=== PATIENT | female | born 1955 | race Caucasian/White ===

== ENCOUNTER → 2016-06-27 | Outpatient (CLI) | payer BC ==
[~2016-06-27] VITALS: Ht 156.2 cm; Wt 58.2 kg
[~2016-06-27] MED LIST: ADULT LOW DOSE81 M1 PO; ATIVAN2 MG PO; Ativan PO; BACTRIM,SEPT1 TABLET PO; BESIVANCE5 ML LEFT EYE; BUSPAR30 MG PO; Buspar PO; CARAFATE1 GM PO; COREG12.5 M1 PO; COREG3.125 M1 PO; COREG6.25 M1 PO; CORLANOR7.5 MG PO; COZAAR25 MG PO; Coreg PO; EFFEXOR XR150 MG PO; FERROUS SULFAT325 MG PO; FLEXERIL5 MG PO; GLUCOPHAGE850 MG PO; Glucophage PO; HUMULIN N100 UNIT/1 SQ; HUMULIN N300 UNIT/3 SC; HUMULIN NP100 UNIT/1 SC; HUMULIN R100 UNITS/ SC; HYDROCODON-ACE1 EAC7 PO; Habitrol,Nicoderm CQ TD; Humulin R SC; KEFLEX500 MG PO; KLOR-CON M1010 MEQ PO; LASIX20 MG PO; LEVEMIR100 UNIT/2 SC; LEVETIRACETAM500 MG PO; LEVOTHROID,S0.125 MG PO; LIPITOR40 MG PO; LOSARTAN POTASS50 MG PO; LOTEMAX5 GM LEFT EYE; Levaquin PO; Levothroid,Synthroid PO; Lipitor PO; METFORMIN HCL850 MG PO; NORCO 5/3251 TABLET PO; NOVOLOG PE100 UNITS/ SC; OMEPRAZOLE40 M1 PO; PROLENSA1.6 ML LEFT EYE; RISPERDAL0.25 M1 PO; RISPERDAL2 MG PO; SINEQUAN25 MG PO; SINEQUAN75 MG PO; SPIRIVA1 INHALATI IH; SYNTHROID125 MCG PO; SYNTHROID175 MCG PO; TRAZODONE HCL100 MG PO; ULTRAM50 MG PO; VICTOZA 2-0.6 MG/0.1 SC
[2016-06-27 09:24] LABS: POINT-OF-CARE METER ID UU13113694
[2016-06-27 09:36] LABS: ANION GAP 9 MEQ/L (2-14); CHLORIDE 100 MEQ/L (99-109); POTASSIUM 3.6 MEQ/L (3.7-5.4); SAMPLE HEMOLYSIS CHECK 0; SAMPLE ICTERIC CHECK 0; SAMPLE LIPEMIA CHECK 0; SODIUM 139 MEQ/L (136-147)
[2016-06-27 09:42] LABS: GFR ESTIMATE (CALCULATED) > 59 mL/min/; GLUCOSE 135 mg/dL (70-99); UREA NITROGEN (BUN) 5 mg/dL (9-23)
[2016-06-27 10:20] LABS: POINT-OF-CARE METER ID UU13113819
== END | disposition home or self-care (01) ==
LOC: AMB 08:30
PROVIDERS: Anesthesiology; Internal Medicine Gastroenterology
PROC: 0DJD8ZZ Inspection of Lower Intestinal Tract, Via Natural or Artificial Opening Endoscopic (ICD-10-PCS; principal; 2016-06-27)
DX: R93.3 Abnormal findings on diagnostic imaging of other parts of digestive tract (principal); K56.60 Unspecified intestinal obstruction; Z53.8 Procedure and treatment not carried out for other reasons; F17.200 Nicotine dependence, unspecified, uncomplicated; J44.9 Chronic obstructive pulmonary disease, unspecified; K21.9 Gastro-esophageal reflux disease without esophagitis; I42.0 Dilated cardiomyopathy; I10 Essential (primary) hypertension; I45.4 Nonspecific intraventricular block; E11.9 Type 2 diabetes mellitus without complications; E78.5 Hyperlipidemia, unspecified; Z85.850 Personal history of malignant neoplasm of thyroid
CPT/HCPCS: 80048; 82948; J2250; J3010

== ENCOUNTER → 2016-06-28 | Outpatient (CLI) | payer BC ==
[~2016-06-28] VITALS: Ht 156.2 cm; Wt 58.2 kg
[2016-06-28 14:38] LABS: POINT-OF-CARE METER ID UU13113694
== END | disposition home or self-care (01) ==
LOC: AMB 08:30
PROVIDERS: Internal Medicine Gastroenterology
PROC: 0DJD8ZZ Inspection of Lower Intestinal Tract, Via Natural or Artificial Opening Endoscopic (ICD-10-PCS; principal; 2016-06-28)
DX: R93.3 Abnormal findings on diagnostic imaging of other parts of digestive tract (principal); F33.1 Major depressive disorder, recurrent, moderate; F41.1 Generalized anxiety disorder; F51.04 Psychophysiologic insomnia
CPT/HCPCS: 82948; B4087; J2250

== ENCOUNTER 2016-09-25 08:07 | Inpatient (IN) | payer BC ==
[~2016-09-25] VITALS: Ht 158.8 cm; Wt 63.2 kg
[~2016-09-25 08:07] MED LIST changes: +ALLERGY RELIEF25 MG PO; +KEPPRA500 MG PO; +STAY AWAKE200 MG PO
[2016-09-25 08:50] LABS: POINT-OF-CARE METER ID UU14174212
[2016-09-25 09:05] VITALS: BP 121/69
[2016-09-25 13:28] LABS: POINT-OF-CARE METER ID UU13113675; POINT-OF-CARE USER ID AHSRSCGAB
[2016-09-25 19:38] VITALS: BP 135/62
[2016-09-25 23:39] VITALS: BP 139/63
[2016-09-26 03:41] VITALS: BP 118/59
[2016-09-26 05:04] LABS: HEMATOCRIT 30.1 % (36.0-46.0); MCV 96.5 FL (83-99)
[2016-09-26 05:13] LABS: CHLORIDE 107 mEq/L (99-109); POTASSIUM 4.4 mEq/L (3.7-5.4); SODIUM 140 mEq/L (136-147)
[2016-09-26 05:15] LABS: GLUCOSE 198 mg/dL (70-99)
[2016-09-26 05:16] LABS: ANION GAP 7 MEQ/L (2-14)
[2016-09-26 05:19] LABS: GFR ESTIMATE (CALCULATED) > 59 mL/min/; UREA NITROGEN (BUN) 14 mg/dL (9-23)
[2016-09-26 08:30] VITALS: BP 130/90
== END 2016-09-26 12:09 | disposition home or self-care (01) | DRG 483 ==
LOC: 2SOUTH 08:07 → 3EAST 17:42
PROVIDERS: Orthopaedic Surgery
DX: S42.291K Other displaced fracture of upper end of right humerus, subsequent encounter for fracture with nonunion (principal); M87.221 Osteonecrosis due to previous trauma, right humerus; S46.011S Strain of muscle(s) and tendon(s) of the rotator cuff of right shoulder, sequela; M24.511 Contracture, right shoulder; J44.9 Chronic obstructive pulmonary disease, unspecified; I10 Essential (primary) hypertension; E11.9 Type 2 diabetes mellitus without complications; E78.00 Pure hypercholesterolemia, unspecified; F17.210 Nicotine dependence, cigarettes, uncomplicated; I25.2 Old myocardial infarction; Z95.0 Presence of cardiac pacemaker
CPT/HCPCS: 80048; 82948; 85014; 85018; 94799; C1713; J0330; J0690; J1100; J1815; J2250; J2405; J2795; J3010; J7030; J7050

== ENCOUNTER 2017-05-03 20:27 | Inpatient (IN) | payer BC ==
[~2017-05-03] VITALS: Ht 160 cm; Wt 58.8 kg
[2017-05-03 21:08] LABS: HEMATOCRIT 40.3 % (36.0-46.0); MCH 31.5 PG (29.0-34.0); MCV 85.2 FL (83-99); MEAN PLAT.VOLUME 9.6 uM^3 (9.5-12.4); NRBC (%) 0.1 /100 WBC (0-0); PLATELET COUNT 417 K/uL (156-360); RBC DIS.WIDTH-CV 14.4 % (11.8-14.6); RBC DIS.WIDTH-SD 43.8 % (39-53); RED BLOOD COUNT 4.73 M/uL (3.80-5.20); WHITE BLOOD COUNT 21.8 K/uL (4.1-10.2)
[2017-05-03 21:20] LABS: CHLORIDE 97 mEq/L (99-109); POTASSIUM 3.8 mEq/L (3.7-5.4); SODIUM 131 mEq/L (136-147)
[2017-05-03 21:22] LABS: GLUCOSE 150 mg/dL (70-99)
[2017-05-03 21:23] LABS: ANION GAP 12 MEQ/L (2-14)
[2017-05-03 21:26] LABS: GFR ESTIMATE (CALCULATED) > 59 mL/min/
[2017-05-03 21:27] LABS: UREA NITROGEN (BUN) 10 mg/dL (9-23)
[2017-05-03 21:53] LABS: TOTAL BILIRUBIN 0.5 mg/dL (0.0-1.0)
[2017-05-03 21:54] LABS: ALKALINE PHOSPHATASE 223 IU/L (3-129)
[2017-05-03 21:56] LABS: DIRECT BILIRUBIN 0.3 mg/dL (0.0-0.3)
[2017-05-03 21:57] LABS: LIPASE 13 U/L (1.0-51.0)
[2017-05-03 21:59] LABS: BASOPHIL COUNT 0.2 K/uL (0-0.1); EOSINOPHIL (%) 3.1 % (0-5); EOSINOPHIL COUNT 0.7 K/uL (0-0.3); IMMATURE GRANULOCYTE (%) 2.7 % (0.0-0.7); IMMATURE GRANULOCYTE COUNT 0.6 K/uL; INSTRUMENT ABS NEUTROPHIL CT 14.5 K/uL; LYMPHOCYTE COUNT 4.2 K/uL (1.0-2.8); MONOCYTE (%) 6.8 % (3-12); MONOCYTE COUNT 1.5 K/uL (0-0.8); NEUTROPHIL (%) 67.3 % (45-76); NEUTROPHIL COUNT 14.5 K/uL (1.8-6.4)
[2017-05-04 01:27] LABS: ADD MIUA? YES; BILIRUBIN NEGATIVE; BLOOD NEGATIVE; COLOR YELLOW ((YELLOW)); GLUCOSE (STRIP) NEGATIVE; KETONES NEGATIVE; LEUKOCYTES SMALL; NITRITE POSITIVE; PROTEIN (STRIP) NEGATIVE; UROBILINOGEN 0.2 MG/DL (0.2-1.0)
[2017-05-04 02:11] LABS: BACTERIA NONE SEEN /HPF; EPITHELIAL CELLS RARE /HPF; HYALINE CASTS 0-5 /LPF; MUCUS 2+ /LPF; RED BLOOD CELLS 0-5 /HPF (0-5); WHITE BLOOD CELLS 30-40 /HPF (0-5)
[2017-05-04] MEDS ORDERED: TRAZODONE HCL50 MG PO (03:00)
[2017-05-04] MEDS ORDERED: LEVOTHYROXINE112 MCG PO (03:01)
[2017-05-04 03:36] LABS: SPECIFIC GRAVITY 1.052 (1.000-1.030)
[2017-05-04 05:05] VITALS: BP 174/81
[2017-05-04 05:57] LABS: HEMATOCRIT 41.4 % (36.0-46.0); MCH 31.5 PG (29.0-34.0); MCHC 36.7 G/DL (30.0-36.0); MCV 85.7 FL (83-99); MEAN PLAT.VOLUME 9.3 uM^3 (9.5-12.4); PLATELET COUNT 412 K/uL (156-360); RBC DIS.WIDTH-CV 14.6 % (11.8-14.6); RBC DIS.WIDTH-SD 45.1 % (39-53); RED BLOOD COUNT 4.83 M/uL (3.80-5.20); WHITE BLOOD COUNT 20.9 K/uL (4.1-10.2)
[2017-05-04 06:14] LABS: INTER. NORMALIZED RATIO 1.6; PROTHROMBIN TIME 17.8 SEC (10.2-12.9)
[2017-05-04 06:37] LABS: ANION GAP 12 MEQ/L (2-14); CHLORIDE 101 MEQ/L (99-109); POTASSIUM 3.1 MEQ/L (3.7-5.4); SAMPLE HEMOLYSIS CHECK 0; SAMPLE ICTERIC CHECK 0; SAMPLE LIPEMIA CHECK 0; SODIUM 134 MEQ/L (136-147)
[2017-05-04 06:48] LABS: GFR ESTIMATE (CALCULATED) > 59 mL/min/; GLUCOSE 143 mg/dL (70-99); UREA NITROGEN (BUN) 7 mg/dL (9-23)
[2017-05-04 06:55] LABS: POINT-OF-CARE METER ID UU14208753
[2017-05-04 06:58] VITALS: BP 176/80
[2017-05-04 07:15] LABS: C DIFF TOXIN NEGATIVE (NEGATIVE); PROBE CHECK PASS; SPECIMEN PROCESSING CONTROL PASS
[2017-05-04 08:00] VITALS: BP 116/68
[2017-05-04 11:33] LABS: POINT-OF-CARE METER ID UU14149397
[2017-05-04 15:20] VITALS: BP 159/76
[2017-05-04 16:40] LABS: POINT-OF-CARE METER ID UU14149397
[2017-05-04 18:06] LABS: ANION GAP 12 MEQ/L (2-14); CHLORIDE 100 MEQ/L (99-109); GFR ESTIMATE (CALCULATED) > 59 mL/min/; GLUCOSE 167 mg/dL (70-99); POTASSIUM 2.6 MEQ/L (3.7-5.4); SAMPLE HEMOLYSIS CHECK 0; SAMPLE ICTERIC CHECK 0; SAMPLE LIPEMIA CHECK 0; SODIUM 134 MEQ/L (136-147); UREA NITROGEN (BUN) 5 mg/dL (9-23)
[2017-05-04 19:43] VITALS: BP 132/63
[2017-05-04 19:59] LABS: MAGNESIUM 0.5 mg/dl (1.3-2.7)
[2017-05-04] MEDS ORDERED: NICOTINE PATCH1 EAC1 TD (21:30)
[2017-05-04 21:51] LABS: POINT-OF-CARE METER ID UU14117124
[2017-05-04 23:22] VITALS: BP 106/57
[2017-05-05 03:31] VITALS: BP 118/56
[2017-05-05 07:09] LABS: HEMATOCRIT 31.5 % (36.0-46.0); MCH 31.3 PG (29.0-34.0); MCHC 37.5 G/DL (30.0-36.0); MCV 83.6 FL (83-99); MEAN PLAT.VOLUME 9.4 uM^3 (9.5-12.4); NRBC (%) 0.1 /100 WBC (0-0); PLATELET COUNT 355 K/uL (156-360); RBC DIS.WIDTH-CV 14.2 % (11.8-14.6); RBC DIS.WIDTH-SD 41.8 % (39-53); RED BLOOD COUNT 3.77 M/uL (3.80-5.20); WHITE BLOOD COUNT 16.6 K/uL (4.1-10.2)
[2017-05-05 07:37] LABS: ANION GAP 9 MEQ/L (2-14); CHLORIDE 101 MEQ/L (99-109); GFR ESTIMATE (CALCULATED) > 59 mL/min/; GLUCOSE 136 mg/dL (70-99); SAMPLE HEMOLYSIS CHECK 0; SAMPLE ICTERIC CHECK 0; SAMPLE LIPEMIA CHECK 0; SODIUM 135 MEQ/L (136-147); UREA NITROGEN (BUN) 2 mg/dL (9-23)
[2017-05-05 07:38] LABS: POTASSIUM 3.8 MEQ/L (3.7-5.4)
[2017-05-05 07:42] LABS: POINT-OF-CARE METER ID UU14149397
[2017-05-05 08:11] VITALS: BP 141/62
[2017-05-05 09:52] LABS: ALKALINE PHOSPHATASE 150 IU/L (3-129); DIRECT BILIRUBIN 0.2 mg/dL (0.0-0.3); GAMMA-GT 150 IU/L (4-73); TOTAL BILIRUBIN 0.6 MG/DL (0.0-1.0)
[2017-05-05 11:43] LABS: POINT-OF-CARE METER ID UU14117124
[2017-05-05 11:48] VITALS: BP 145/67
[2017-05-05 15:51] VITALS: BP 130/62
[2017-05-05 17:26] LABS: POINT-OF-CARE METER ID UU14117124
[2017-05-05 19:48] VITALS: BP 148/71
[2017-05-05 21:16] LABS: POINT-OF-CARE METER ID UU14117124
[2017-05-05 23:39] VITALS: BP 153/72
[2017-05-06 04:56] VITALS: BP 148/71
[2017-05-06 06:31] LABS: POINT-OF-CARE METER ID UU14208753
[2017-05-06 06:51] LABS: MCV 83.8 FL (83-99); RED BLOOD COUNT 3.82 M/uL (3.80-5.20); WHITE BLOOD COUNT 13.9 K/uL (4.1-10.2)
[2017-05-06 06:52] LABS: BASOPHIL COUNT 0.1 K/uL (0-0.1); EOSINOPHIL (%) 5.2 % (0-5); EOSINOPHIL COUNT 0.7 K/uL (0-0.3); IMMATURE GRANULOCYTE (%) 1.7 % (0.0-0.7); IMMATURE GRANULOCYTE COUNT 0.2 K/uL; INSTRUMENT ABS NEUTROPHIL CT 8.4 K/uL; LYMPHOCYTE COUNT 3.2 K/uL (1.0-2.8); MCH 31.4 PG (29.0-34.0); MCHC 37.5 G/DL (30.0-36.0); MEAN PLAT.VOLUME 9.4 uM^3 (9.5-12.4); MONOCYTE (%) 9.5 % (3-12); MONOCYTE COUNT 1.3 K/uL (0-0.8); NEUTROPHIL (%) 59.9 % (45-76); NEUTROPHIL COUNT 8.4 K/uL (1.8-6.4); PLATELET COUNT 375 K/uL (156-360); RBC DIS.WIDTH-CV 14.3 % (11.8-14.6); RBC DIS.WIDTH-SD 41.5 % (39-53)
[2017-05-06 07:25] LABS: ANION GAP 11 MEQ/L (2-14); CHLORIDE 100 MEQ/L (99-109); GFR ESTIMATE (CALCULATED) > 59 mL/min/; GLUCOSE 105 mg/dL (70-99); MAGNESIUM 1.2 mg/dl (1.3-2.7); SAMPLE HEMOLYSIS CHECK 0; SAMPLE ICTERIC CHECK 0; SAMPLE LIPEMIA CHECK 0; SODIUM 138 MEQ/L (136-147); UREA NITROGEN (BUN) 2 mg/dL (9-23)
[2017-05-06 08:08] VITALS: BP 154/77
[2017-05-06 10:44] LABS: POC NON-PRINT COM 1 ND
[2017-05-06 11:44] LABS: POINT-OF-CARE METER ID UU14188577
[2017-05-06 12:05] VITALS: BP 149/72
[2017-05-06 15:40] LABS: POINT-OF-CARE METER ID UU14188577
[2017-05-06 16:02] VITALS: BP 135/69
[2017-05-06 20:27] VITALS: BP 140/66
[2017-05-06 21:51] LABS: POINT-OF-CARE METER ID UU14208753
[2017-05-06 23:56] VITALS: BP 161/72
[2017-05-07 04:26] VITALS: BP 157/74
[2017-05-07 06:26] LABS: POINT-OF-CARE METER ID UU14117124
[2017-05-07 06:38] LABS: BASOPHIL COUNT 0.1 K/uL (0-0.1); EOSINOPHIL (%) 5.2 % (0-5); EOSINOPHIL COUNT 0.5 K/uL (0-0.3); HEMATOCRIT 29.4 % (36.0-46.0); IMMATURE GRANULOCYTE (%) 1.7 % (0.0-0.7); IMMATURE GRANULOCYTE COUNT 0.2 K/uL; INSTRUMENT ABS NEUTROPHIL CT 4.8 K/uL; LYMPHOCYTE COUNT 2.7 K/uL (1.0-2.8); MCH 32.1 PG (29.0-34.0); MCHC 37.4 G/DL (30.0-36.0); MCV 85.7 FL (83-99); MEAN PLAT.VOLUME 9.5 uM^3 (9.5-12.4); MONOCYTE (%) 12.9 % (3-12); MONOCYTE COUNT 1.2 K/uL (0-0.8); NEUTROPHIL (%) 50.8 % (45-76); NEUTROPHIL COUNT 4.8 K/uL (1.8-6.4); PLATELET COUNT 344 K/uL (156-360); RBC DIS.WIDTH-CV 14.4 % (11.8-14.6); RED BLOOD COUNT 3.43 M/uL (3.80-5.20); WHITE BLOOD COUNT 9.4 K/uL (4.1-10.2)
[2017-05-07 07:01] LABS: CHLORIDE 98 MEQ/L (99-109); GFR ESTIMATE (CALCULATED) > 59 mL/min/; GLUCOSE 152 mg/dL (70-99); POTASSIUM 3.2 MEQ/L (3.7-5.4); SODIUM 137 MEQ/L (136-147); UREA NITROGEN (BUN) 4 mg/dL (9-23)
[2017-05-07 07:02] LABS: ANION GAP 8 MEQ/L (2-14); MAGNESIUM 1.1 mg/dl (1.3-2.7); SAMPLE HEMOLYSIS CHECK 0; SAMPLE ICTERIC CHECK 0; SAMPLE LIPEMIA CHECK 0
[2017-05-07 08:14] VITALS: BP 116/74
[2017-05-07 12:09] LABS: POINT-OF-CARE METER ID UU14117124
[2017-05-07 15:38] VITALS: BP 113/55
[2017-05-07 17:05] LABS: POINT-OF-CARE METER ID UU14117124
[2017-05-07 21:39] LABS: POINT-OF-CARE METER ID UU14188577
[2017-05-07 23:54] VITALS: BP 158/75
[2017-05-08 06:53] LABS: POINT-OF-CARE METER ID UU14208753
[2017-05-08 07:11] LABS: BASOPHIL COUNT 0.1 K/uL (0-0.1); EOSINOPHIL (%) 4.9 % (0-5); EOSINOPHIL COUNT 0.4 K/uL (0-0.3); HEMATOCRIT 31.4 % (36.0-46.0); IMMATURE GRANULOCYTE (%) 1.4 % (0.0-0.7); IMMATURE GRANULOCYTE COUNT 0.1 K/uL; INSTRUMENT ABS NEUTROPHIL CT 5.3 K/uL; MCH 31.4 PG (29.0-34.0); MCHC 35.7 G/DL (30.0-36.0); MEAN PLAT.VOLUME 9.5 uM^3 (9.5-12.4); MONOCYTE COUNT 1.2 K/uL (0-0.8); NEUTROPHIL (%) 58.3 % (45-76); NEUTROPHIL COUNT 5.3 K/uL (1.8-6.4); PLATELET COUNT 384 K/uL (156-360); RBC DIS.WIDTH-CV 14.8 % (11.8-14.6); RBC DIS.WIDTH-SD 45.1 % (39-53); RED BLOOD COUNT 3.57 M/uL (3.80-5.20)
[2017-05-08 07:39] LABS: ANION GAP 9 MEQ/L (2-14); CHLORIDE 96 MEQ/L (99-109); GFR ESTIMATE (CALCULATED) > 59 mL/min/; GLUCOSE 166 mg/dL (70-99); POTASSIUM 3.8 MEQ/L (3.7-5.4); SAMPLE HEMOLYSIS CHECK 0; SAMPLE ICTERIC CHECK 0; SAMPLE LIPEMIA CHECK 0; SODIUM 136 MEQ/L (136-147); UREA NITROGEN (BUN) 7 mg/dL (9-23)
[2017-05-08 07:40] LABS: MAGNESIUM 1.4 mg/dl (1.3-2.7)
[2017-05-08 08:05] VITALS: BP 181/84
[2017-05-08] MEDS ORDERED: CIPRO500 MG PO (08:51)
== END 2017-05-08 12:03 | disposition home or self-care (01) | DRG 378 ==
LOC: EME 20:27 → EDOF 05-04 03:41 → 3EAST 05-04 03:41 → ENRESERV 05-04 03:45 → 3EAST 05-04 04:23
PROVIDERS: Hospitalist; Internal Medicine; Internal Medicine Gastroenterology; Physician Assistant; Student in an Organized Health Care Education/Training Program
PROC: 0DB68ZX Excision of Stomach, Via Natural or Artificial Opening Endoscopic, Diagnostic (ICD-10-PCS; principal; 2017-05-04)
DX: K92.1 Melena (principal); N30.00 Acute cystitis without hematuria; I42.0 Dilated cardiomyopathy; E87.1 Hypo-osmolality and hyponatremia; K29.60 Other gastritis without bleeding; Z66 Do not resuscitate; K25.4 Chronic or unspecified gastric ulcer with hemorrhage; E87.8 Other disorders of electrolyte and fluid balance, not elsewhere classified; E03.9 Hypothyroidism, unspecified; G40.909 Epilepsy, unspecified, not intractable, without status epilepticus; F17.210 Nicotine dependence, cigarettes, uncomplicated; F41.9 Anxiety disorder, unspecified; I10 Essential (primary) hypertension; E78.5 Hyperlipidemia, unspecified; E11.43 Type 2 diabetes mellitus with diabetic autonomic (poly)neuropathy; K31.84 Gastroparesis; I44.7 Left bundle-branch block, unspecified; J43.9 Emphysema, unspecified; K21.9 Gastro-esophageal reflux disease without esophagitis; I25.10 Atherosclerotic heart disease of native coronary artery without angina pectoris; E86.0 Dehydration; B96.20 Unspecified Escherichia coli [E. coli] as the cause of diseases classified elsewhere; Z79.82 Long term (current) use of aspirin; Z79.84 Long term (current) use of oral hypoglycemic drugs; Z95.810 Presence of automatic (implantable) cardiac defibrillator; Z87.442 Personal history of urinary calculi; Z87.11 Personal history of peptic ulcer disease; Z86.010 Personal history of colon polyps; Z85.850 Personal history of malignant neoplasm of thyroid
CPT/HCPCS: 74177; 80048; 80048 91; 80069; 80076; 81003; 82272; 82565; 82948; 82977; 83605; 83690; 83735; 83930; 84100; 84443; 84520; 85025; 85027; 85610; 86850; 86900; 86901; 87040; 87077; 87086; 87186; 87493; 87506; 88305; 88342 TC; 90686; 93005; 99281; 99285; C9113; J0610; J0696; J1815; J3475; J3480; J7030; J7040; J7050

== ENCOUNTER 2017-11-16 22:04 | Emergency (ER) | payer BC ==
[~2017-11-16] VITALS: Ht 160 cm; Wt 63.3 kg
[~2017-11-16 22:04] MED LIST changes: +CIPRO500 MG PO; +LEVOTHYROXINE112 MCG PO; +NICOTINE PATCH1 EAC1 TD; +TRAZODONE HCL50 MG PO
[2017-11-16 23:39] VITALS: BP 157/77
== END 2017-11-16 23:39 | disposition home or self-care (01) ==
LOC: EME 22:04
DX: J04.0 Acute laryngitis (principal); E11.9 Type 2 diabetes mellitus without complications; Z87.891 Personal history of nicotine dependence; Z95.810 Presence of automatic (implantable) cardiac defibrillator; Z85.850 Personal history of malignant neoplasm of thyroid; Z88.8 Allergy status to other drugs, medicaments and biological substances
CPT/HCPCS: 70360; 87651 90; 99281; 99283

== ENCOUNTER 2017-12-17 12:34 | Inpatient (IN) | payer BC ==
[2017-12-17] VITALS (16 sets, daily range): BP systolic 102–183; BP diastolic 57–150
[~2017-12-17] VITALS: Ht 160 cm; Wt 62.3 kg
[~2017-12-17 12:34] MED LIST changes: +LEVOTHYROXINE100 MCG PO; -LEVOTHYROXINE112 MCG PO
[2017-12-17 13:40] LABS: BASOPHIL (%) 0.6 % (0-1); BASOPHIL COUNT 0.1 K/uL (0-0.1); EOSINOPHIL (%) 0 % (0-5); HEMATOCRIT 46.9 % (36.0-46.0); HEMOGLOBIN 16.2 G/DL (11.9-15.5); IMMATURE GRANULOCYTE (%) 0.8 % (0.0-0.7); LYMPHOCYTE (%) 20.9 % (15-42); LYMPHOCYTE COUNT 2.6 K/uL (1.0-2.8); MCH 32.4 PG (29.0-34.0); MCHC 34.5 G/DL (30.0-36.0); MCV 93.8 FL (83-99); MONOCYTE COUNT 0.5 K/uL (0-0.8); NEUTROPHIL (%) 73.7 % (45-76); NEUTROPHIL COUNT 9.1 K/uL (1.8-6.4); PLATELET COUNT 561 K/uL (156-360); RBC DIS.WIDTH-CV 13.1 % (11.8-14.6); RBC DIS.WIDTH-SD 44.8 % (39-53); WHITE BLOOD COUNT 12.4 K/uL (4.1-10.2)
[2017-12-17 13:44] LABS: CARBON DIOXIDE (BICARBONATE) 15.2 MEQ/L (20-31)
[2017-12-17 14:42] LABS: ALBUMIN 4.9 G/DL (3.2-4.8); ALKALINE PHOSPHATASE 105 IU/L (3-129); ALT (GPT) 23 IU/L (3-49); AST (GOT) 16 IU/L (2-34); CHLORIDE 98 MEQ/L (99-109); CREATININE 0.9 MG/DL (0.6-1.3); DIRECT BILIRUBIN 0.1 mg/dL (0.0-0.3); GFR ESTIMATE (CALCULATED) > 59 mL/min/; POTASSIUM 4.4 MEQ/L (3.7-5.4); SODIUM 132 MEQ/L (136-147); THYROTROPIN (TSH) 24.9 MIU/L (0.4-5.5); TOTAL BILIRUBIN 0.4 MG/DL (0.0-1.0); TOTAL PROTEIN 8.1 G/DL (6.4-8.3); UREA NITROGEN (BUN) 10 mg/dL (9-23)
[2017-12-17 14:56] LABS: GLUCOSE 556 mg/dL (70-99)
[2017-12-17 15:38] LABS: LIPASE 25 U/L (1.0-51.0)
[2017-12-17] MEDS ORDERED: DILANTIN INFATA50 MG PO (16:03)
[2017-12-17 16:47] LABS: PHOSPHORUS 2.5 mg/dL (2.5-4.9)
[2017-12-17 17:26] LABS: APPEARANCE CLEAR ((CLEAR)); BILIRUBIN NEGATIVE; BLOOD SMALL; COLOR STRAW ((YELLOW)); GLUCOSE (STRIP) >=500; KETONES NEGATIVE; LEUKOCYTES NEGATIVE; NITRITE NEGATIVE; PROTEIN (STRIP) 30; SPECIFIC GRAVITY 1.041 (1.000-1.030); UROBILINOGEN 0.2 MG/DL (0.2-1.0)
[2017-12-17 17:34] LABS: HEMATOCRIT 43.4 % (36.0-46.0); HEMOGLOBIN 14.7 G/DL (11.9-15.5); MCH 31.7 PG (29.0-34.0); MCHC 33.9 G/DL (30.0-36.0); MCV 93.5 FL (83-99); PLATELET COUNT 546 K/uL (156-360); RBC DIS.WIDTH-CV 13.2 % (11.8-14.6); RBC DIS.WIDTH-SD 44.8 % (39-53); RED BLOOD COUNT 4.64 M/uL (3.80-5.20); WHITE BLOOD COUNT 15.5 K/uL (4.1-10.2)
[2017-12-17 18:04] LABS: EPITHELIAL CELLS RARE /HPF; RED BLOOD CELLS 0-5 /HPF (0-5); WHITE BLOOD CELLS 0-5 /HPF (0-5)
[2017-12-17 18:05] LABS: BACTERIA RARE /HPF; UCUL ADDED? NO
[2017-12-17 18:06] LABS: MUCUS TRACE /LPF
[2017-12-17 19:07] LABS: CHLORIDE 102 MEQ/L (99-109); CREATININE 0.7 MG/DL (0.6-1.3); GFR ESTIMATE (CALCULATED) > 59 mL/min/; POTASSIUM 4.5 MEQ/L (3.7-5.4); SODIUM 134 MEQ/L (136-147); UREA NITROGEN (BUN) 7 mg/dL (9-23)
[2017-12-17 19:12] LABS: GLUCOSE 200 mg/dL (70-99)
[2017-12-17 19:17] LABS: STOOL OCCULT BLD 1ST SPECIMEN NEGATIVE
[2017-12-17 20:30] LABS: CHLORIDE 103 MEQ/L (99-109); CREATININE 0.6 MG/DL (0.6-1.3); GFR ESTIMATE (CALCULATED) > 59 mL/min/; GLUCOSE 195 mg/dL (70-99); PHOSPHORUS 2.3 mg/dL (2.5-4.9); POTASSIUM 3.7 MEQ/L (3.7-5.4); SODIUM 135 MEQ/L (136-147); UREA NITROGEN (BUN) 6 mg/dL (9-23)
[2017-12-18] VITALS (22 sets, daily range): BP systolic 97–169; BP diastolic 57–99
[2017-12-18 01:09] LABS: HEMATOCRIT 34.3 % (36.0-46.0); HEMOGLOBIN 11.7 G/DL (11.9-15.5); MCH 32.6 PG (29.0-34.0); MCHC 34.1 G/DL (30.0-36.0); MCV 95.5 FL (83-99); PLATELET COUNT 363 K/uL (156-360); RBC DIS.WIDTH-SD 45.1 % (39-53); RED BLOOD COUNT 3.59 M/uL (3.80-5.20); WHITE BLOOD COUNT 16.4 K/uL (4.1-10.2)
[2017-12-18 01:15] LABS: CHLORIDE 107 mEq/L (99-109); SODIUM 132 mEq/L (136-147)
[2017-12-18 01:17] LABS: GLUCOSE 167 mg/dL (70-99)
[2017-12-18 01:21] LABS: CREATININE 0.7 mg/dL (0.6-1.3); GFR ESTIMATE (CALCULATED) > 59 mL/min/; PHOSPHORUS 1.5 mg/dL (2.5-4.9)
[2017-12-18 01:22] LABS: UREA NITROGEN (BUN) 4 mg/dL (9-23)
[2017-12-18 05:35] LABS: HEMATOCRIT 36.9 % (36.0-46.0); HEMOGLOBIN 12.3 G/DL (11.9-15.5); MCH 31.5 PG (29.0-34.0); MCHC 33.3 G/DL (30.0-36.0); MCV 94.4 FL (83-99); PLATELET COUNT 432 K/uL (156-360); RBC DIS.WIDTH-CV 13.2 % (11.8-14.6); RBC DIS.WIDTH-SD 45.6 % (39-53); RED BLOOD COUNT 3.91 M/uL (3.80-5.20); WHITE BLOOD COUNT 16.3 K/uL (4.1-10.2)
[2017-12-18 05:45] LABS: CHLORIDE 103 MEQ/L (99-109); CREATININE 0.5 MG/DL (0.6-1.3); GFR ESTIMATE (CALCULATED) > 59 mL/min/; GLUCOSE 156 mg/dL (70-99); PHOSPHORUS 2.7 mg/dL (2.5-4.9); POTASSIUM 3.6 MEQ/L (3.7-5.4); SODIUM 134 MEQ/L (136-147); UREA NITROGEN (BUN) 4 mg/dL (9-23)
[2017-12-18 08:30] LABS: CHLORIDE 103 MEQ/L (99-109); CREATININE 0.5 MG/DL (0.6-1.3); GFR ESTIMATE (CALCULATED) > 59 mL/min/; GLUCOSE 185 mg/dL (70-99); PHOSPHORUS 3.2 mg/dL (2.5-4.9); POTASSIUM 4.1 MEQ/L (3.7-5.4); SODIUM 133 MEQ/L (136-147); UREA NITROGEN (BUN) 4 mg/dL (9-23)
[2017-12-18 09:42] LABS: HEMOGLOBIN A1c (GLYCOHEMOGLOB) 8.2 % (Below 5.7)
[2017-12-18 16:21] LABS: CHLORIDE 105 MEQ/L (99-109); CREATININE 0.5 MG/DL (0.6-1.3); GFR ESTIMATE (CALCULATED) > 59 mL/min/; SODIUM 136 MEQ/L (136-147); UREA NITROGEN (BUN) 3 mg/dL (9-23)
[2017-12-18 16:29] LABS: GLUCOSE 109 mg/dL (70-99); POTASSIUM 2.9 MEQ/L (3.7-5.4)
[2017-12-18 20:23] LABS: CHLORIDE 101 MEQ/L (99-109); CREATININE 0.5 MG/DL (0.6-1.3); GFR ESTIMATE (CALCULATED) > 59 mL/min/; MAGNESIUM 1.1 mg/dl (1.3-2.7); PHOSPHORUS 2.2 mg/dL (2.5-4.9); POTASSIUM 3.4 MEQ/L (3.7-5.4); SODIUM 133 MEQ/L (136-147); UREA NITROGEN (BUN) 3 mg/dL (9-23)
[2017-12-18 20:24] LABS: GLUCOSE 252 mg/dL (70-99)
[2017-12-19] VITALS (19 sets, daily range): BP systolic 93–138; BP diastolic 51–92
[2017-12-19 04:51] LABS: BASOPHIL (%) 0.7 % (0-1); BASOPHIL COUNT 0.1 K/uL (0-0.1); EOSINOPHIL (%) 1.4 % (0-5); EOSINOPHIL COUNT 0.2 K/uL (0-0.3); HEMATOCRIT 34.5 % (36.0-46.0); HEMOGLOBIN 11.9 G/DL (11.9-15.5); IMMATURE GRANULOCYTE (%) 0.5 % (0.0-0.7); LYMPHOCYTE (%) 26.4 % (15-42); LYMPHOCYTE COUNT 3.4 K/uL (1.0-2.8); MCH 32.2 PG (29.0-34.0); MCHC 34.5 G/DL (30.0-36.0); MCV 93.5 FL (83-99); MONOCYTE (%) 9.1 % (3-12); MONOCYTE COUNT 1.2 K/uL (0-0.8); NEUTROPHIL (%) 61.9 % (45-76); NEUTROPHIL COUNT 8.1 K/uL (1.8-6.4); PLATELET COUNT 347 K/uL (156-360); RBC DIS.WIDTH-CV 13.3 % (11.8-14.6); RBC DIS.WIDTH-SD 45.9 % (39-53); RED BLOOD COUNT 3.69 M/uL (3.80-5.20)
[2017-12-19 05:10] LABS: CHLORIDE 106 mEq/L (99-109); SODIUM 137 mEq/L (136-147)
[2017-12-19 05:11] LABS: MAGNESIUM 1.6 mg/dL (1.3-2.7)
[2017-12-19 05:16] LABS: CREATININE 0.6 mg/dL (0.6-1.3); GFR ESTIMATE (CALCULATED) > 59 mL/min/
[2017-12-19 05:17] LABS: UREA NITROGEN (BUN) 4 mg/dL (9-23)
[2017-12-19 05:23] LABS: GLUCOSE 36 mg/dL (70-99); POTASSIUM 4.2 mEq/L (3.7-5.4)
[2017-12-20 08:15] VITALS: BP 139/70
[2017-12-20 09:00] LABS: BASOPHIL (%) 0.5 % (0-1); BASOPHIL COUNT 0.1 K/uL (0-0.1); EOSINOPHIL (%) 2.6 % (0-5); EOSINOPHIL COUNT 0.2 K/uL (0-0.3); HEMATOCRIT 33.2 % (36.0-46.0); HEMOGLOBIN 11.2 G/DL (11.9-15.5); IMMATURE GRANULOCYTE (%) 0.7 % (0.0-0.7); LYMPHOCYTE COUNT 2.4 K/uL (1.0-2.8); MCH 31.8 PG (29.0-34.0); MCHC 33.7 G/DL (30.0-36.0); MCV 94.3 FL (83-99); MONOCYTE (%) 8.1 % (3-12); MONOCYTE COUNT 0.7 K/uL (0-0.8); NEUTROPHIL (%) 62.1 % (45-76); NEUTROPHIL COUNT 5.7 K/uL (1.8-6.4); PLATELET COUNT 310 K/uL (156-360); RBC DIS.WIDTH-SD 48.2 % (39-53); RED BLOOD COUNT 3.52 M/uL (3.80-5.20); WHITE BLOOD COUNT 9.2 K/uL (4.1-10.2)
[2017-12-20 09:47] LABS: CHLORIDE 101 MEQ/L (99-109); CREATININE 0.5 MG/DL (0.6-1.3); GFR ESTIMATE (CALCULATED) > 59 mL/min/; GLUCOSE 234 mg/dL (70-99); MAGNESIUM 1.5 mg/dl (1.3-2.7); SODIUM 136 MEQ/L (136-147); UREA NITROGEN (BUN) 5 mg/dL (9-23)
[2017-12-20 16:11] VITALS: BP 129/78
[2017-12-20 22:07] LABS: C DIFF TOXIN NEGATIVE (NEGATIVE)
[2017-12-21 00:24] VITALS: BP 140/63
[2017-12-21 07:39] VITALS: BP 121/65
[2017-12-21] MEDS ORDERED: NOVOLOG 10100 UNITS/ SC (10:30)
[2017-12-21] MEDS ORDERED: METFORMIN HCL1000 MG PO (10:30)
[2017-12-22 01:00] VITALS: BP 137/69
[2017-12-22 06:20] LABS: HEMATOCRIT 30.8 % (36.0-46.0); HEMOGLOBIN 10.2 G/DL (11.9-15.5); MCH 32.2 PG (29.0-34.0); MCHC 33.1 G/DL (30.0-36.0); MCV 97.2 FL (83-99); PLATELET COUNT 342 K/uL (156-360); RBC DIS.WIDTH-CV 13.8 % (11.8-14.6); RBC DIS.WIDTH-SD 48.7 % (39-53); RED BLOOD COUNT 3.17 M/uL (3.80-5.20); WHITE BLOOD COUNT 10.1 K/uL (4.1-10.2)
[2017-12-22 06:41] LABS: CHLORIDE 101 MEQ/L (99-109); CREATININE 0.5 MG/DL (0.6-1.3); GFR ESTIMATE (CALCULATED) > 59 mL/min/; GLUCOSE 178 mg/dL (70-99); POTASSIUM 4.3 MEQ/L (3.7-5.4); SODIUM 138 MEQ/L (136-147); UREA NITROGEN (BUN) 12 mg/dL (9-23)
[2017-12-22 07:44] VITALS: BP 116/71
[2017-12-22 09:24] VITALS: BP 116/71
[2017-12-22] MEDS ORDERED: VICTOZA 2-0.6 MG/0.1 SC (13:17)
== END 2017-12-22 14:12 | disposition home health service (06) | DRG 638 ==
LOC: EME 12:34 → 4WEST 14:09 → EDOF 14:09 → ENRESERV 14:15 → 4WEST 16:14 → ENRESERV 12-19 17:01 → 5SOUTH 12-19 19:33
PROVIDERS: Emergency Medicine; Hospitalist; Internal Medicine; Physician Assistant; Physician Assistant Medical; Specialist
DX: E11.10 Type 2 diabetes mellitus with ketoacidosis without coma (principal); E86.0 Dehydration; I42.0 Dilated cardiomyopathy; J44.9 Chronic obstructive pulmonary disease, unspecified; D72.829 Elevated white blood cell count, unspecified; I25.2 Old myocardial infarction; I10 Essential (primary) hypertension; E78.5 Hyperlipidemia, unspecified; G40.909 Epilepsy, unspecified, not intractable, without status epilepticus; R19.5 Other fecal abnormalities; R30.0 Dysuria; R19.7 Diarrhea, unspecified; Z95.810 Presence of automatic (implantable) cardiac defibrillator; Z85.850 Personal history of malignant neoplasm of thyroid; Z87.891 Personal history of nicotine dependence
CPT/HCPCS: 71045; 74177; 80047; 80048; 80048 91; 80076; 80185; 81003; 82272; 82803; 82948; 83036; 83605; 83690; 83735; 84100; 84439; 84443; 85025; 85027; 87086; 87493; 87641; 93005; 99281; 99285; C9113; J0696; J1165; J1644; J1815; J1885; J1953; J3475; J3480; J7030; J7050; S0028

== ENCOUNTER 2017-12-25 18:14 | Emergency (ER) | payer BC ==
[~2017-12-25] VITALS: Ht 160 cm; Wt 62.7 kg
[~2017-12-25 18:14] MED LIST changes: +DILANTIN INFATA50 MG PO; +METFORMIN HCL1000 MG PO; +NOVOLOG 10100 UNITS/ SC
[2017-12-25 19:24] LABS: APPEARANCE CLEAR ((CLEAR)); BILIRUBIN NEGATIVE; BLOOD NEGATIVE; COLOR YELLOW ((YELLOW)); GLUCOSE (STRIP) 50; KETONES NEGATIVE; LEUKOCYTES NEGATIVE; NITRITE NEGATIVE; PROTEIN (STRIP) 100; SPECIFIC GRAVITY 1.021 (1.000-1.030); UROBILINOGEN 0.2 MG/DL (0.2-1.0)
[2017-12-25 19:34] LABS: BACTERIA NONE SEEN /HPF; EPITHELIAL CELLS RARE /HPF; MUCUS TRACE /LPF; RED BLOOD CELLS 0-5 /HPF (0-5); UCUL ADDED? NO; WHITE BLOOD CELLS 0-5 /HPF (0-5)
[2017-12-25 19:55] LABS: HEMOGLOBIN 13.8 G/DL (11.9-15.5); MCH 32.3 PG (29.0-34.0); MCHC 34.5 G/DL (30.0-36.0); MCV 93.7 FL (83-99); PLATELET COUNT 642 K/uL (156-360); RBC DIS.WIDTH-CV 12.8 % (11.8-14.6); RBC DIS.WIDTH-SD 43.5 % (39-53); RED BLOOD COUNT 4.27 M/uL (3.80-5.20); WHITE BLOOD COUNT 13.8 K/uL (4.1-10.2)
[2017-12-25 20:11] LABS: ALBUMIN 4.3 g/dL (3.2-4.8); POTASSIUM 3.6 mEq/L (3.7-5.4)
[2017-12-25 20:13] LABS: GLUCOSE 246 mg/dL (70-99); TOTAL PROTEIN 7.9 g/dL (6.4-8.3)
[2017-12-25 20:15] LABS: TOTAL BILIRUBIN 0.3 mg/dL (0.0-1.0)
[2017-12-25 20:17] LABS: ALKALINE PHOSPHATASE 141 IU/L (3-129); CREATININE 0.8 mg/dL (0.6-1.3); GFR ESTIMATE (CALCULATED) > 59 mL/min/
[2017-12-25 20:18] LABS: UREA NITROGEN (BUN) 9 mg/dL (9-23)
[2017-12-25 20:19] LABS: AST (GOT) 21 IU/L (2-34)
[2017-12-25 20:20] LABS: ALT (GPT) 32 IU/L (3-49); LIPASE 15 U/L (1.0-51.0)
[2017-12-25 20:22] LABS: CHLORIDE 85 mEq/L (99-109); SODIUM 131 mEq/L (136-147)
[2017-12-26 00:20] VITALS: BP 188/100
== END 2017-12-26 00:37 | disposition home or self-care (01) ==
LOC: EME 18:14
DX: R10.9 Unspecified abdominal pain (principal); R11.2 Nausea with vomiting, unspecified; R19.7 Diarrhea, unspecified; I10 Essential (primary) hypertension; E78.5 Hyperlipidemia, unspecified; E11.9 Type 2 diabetes mellitus without complications; J44.9 Chronic obstructive pulmonary disease, unspecified; I25.2 Old myocardial infarction; Z95.0 Presence of cardiac pacemaker; Z87.891 Personal history of nicotine dependence; Z87.442 Personal history of urinary calculi; Z85.850 Personal history of malignant neoplasm of thyroid; Z88.8 Allergy status to other drugs, medicaments and biological substances
CPT/HCPCS: 74177; 80053; 81003; 83690; 85027; 99281; 99285; J2405; J7030

== ENCOUNTER 2018-01-02 15:49 | Emergency (ER) | payer BC ==
[~2018-01-02] VITALS: Ht 160 cm; Wt 58.6 kg
[2018-01-02 17:29] LABS: HEMATOCRIT 38.9 % (36.0-46.0); MCH 32.7 PG (29.0-34.0); MCV 90.9 FL (83-99); PLATELET COUNT 499 K/uL (156-360); RBC DIS.WIDTH-SD 39.9 % (39-53); RED BLOOD COUNT 4.28 M/uL (3.80-5.20); WHITE BLOOD COUNT 12.5 K/uL (4.1-10.2)
[2018-01-02 17:35] LABS: APPEARANCE CLEAR ((CLEAR)); BILIRUBIN NEGATIVE; BLOOD SMALL; COLOR STRAW ((YELLOW)); GLUCOSE (STRIP) NEGATIVE; KETONES 5; LEUKOCYTES NEGATIVE; NITRITE NEGATIVE; PROTEIN (STRIP) NEGATIVE; SPECIFIC GRAVITY 1.009 (1.000-1.030); UROBILINOGEN 0.2 MG/DL (0.2-1.0)
[2018-01-02 17:38] LABS: BACTERIA RARE /HPF; EPITHELIAL CELLS NONE SEEN /HPF; MUCUS TRACE /LPF; RED BLOOD CELLS 0-5 /HPF (0-5); WHITE BLOOD CELLS 0-5 /HPF (0-5)
[2018-01-02 17:40] LABS: CHLORIDE 95 mEq/L (99-109); POTASSIUM 3.9 mEq/L (3.7-5.4); SODIUM 130 mEq/L (136-147)
[2018-01-02 17:41] LABS: GLUCOSE 112 mg/dL (70-99)
[2018-01-02 17:45] LABS: CREATININE 0.6 mg/dL (0.6-1.3); GFR ESTIMATE (CALCULATED) > 59 mL/min/
[2018-01-02 17:46] LABS: UREA NITROGEN (BUN) 6 mg/dL (9-23)
[2018-01-02 19:04] VITALS: BP 138/79
[2018-01-21] MEDS ORDERED: KEPPRA500 MG PO (00:03)
[2018-01-21] MEDS ORDERED: VENLAFAXINE HC150 MG PO (00:04)
[2018-01-21] MEDS ORDERED: OMEPRAZOLE40 M1 PO (00:05)
[2018-01-21] MEDS ORDERED: LEVOTHYROXINE100 MCG PO (00:05)
[2018-01-21] MEDS ORDERED: COZAAR25 MG PO (00:05)
[2018-01-21] MEDS ORDERED: KLOR-CON 1010 ME1 PO (00:06)
[2018-01-21] MEDS ORDERED: FERROUS SULFAT325 MG PO (00:06)
[2018-01-21] MEDS ORDERED: ATORVASTATIN CA40 MG PO (00:06)
[2018-01-21] MEDS ORDERED: METFORMIN HCL850 MG PO (00:06)
[2018-01-21] MEDS ORDERED: BUSPIRONE HCL30 MG PO (00:07)
[2018-01-21] MEDS ORDERED: CARVEDILOL12.5 MG PO (00:09)
[2018-01-21] MEDS ORDERED: CYCLOBENZAPRINE5 MG PO (00:12)
[2018-01-21] MEDS ORDERED: TRAZODONE HCL50 MG PO (00:12)
[2018-01-21] MEDS ORDERED: VICTOZA 2-0.6 MG/0.1 SC (00:13)
[2018-01-21] MEDS ORDERED: ASPIRIN81 M2 PO (00:13)
[2018-01-21] MEDS ORDERED: RISPERDAL2 MG PO (00:13)
== END 2018-01-02 19:06 | disposition home or self-care (01) ==
LOC: EXP 15:49 → EME 15:49 → EXP 19:06
PROVIDERS: Nurse Practitioner Family
DX: E86.0 Dehydration (principal); R34 Anuria and oliguria; Z85.850 Personal history of malignant neoplasm of thyroid; E11.9 Type 2 diabetes mellitus without complications; E78.5 Hyperlipidemia, unspecified; I10 Essential (primary) hypertension; I25.2 Old myocardial infarction; J43.9 Emphysema, unspecified; Z87.442 Personal history of urinary calculi; Z95.0 Presence of cardiac pacemaker; Z87.891 Personal history of nicotine dependence
CPT/HCPCS: 80048; 81003; 85027; 99281; 99284; J7030

== ENCOUNTER 2018-01-06 16:09 | Emergency (ER) | payer BC ==
[~2018-01-06] VITALS: Ht 160 cm; Wt 56.1 kg
[2018-01-06 17:35] LABS: MCH 32.3 PG (29.0-34.0); MCHC 35.7 G/DL (30.0-36.0); MCV 90.5 FL (83-99); PLATELET COUNT 510 K/uL (156-360); RBC DIS.WIDTH-SD 39.7 % (39-53); RED BLOOD COUNT 4.64 M/uL (3.80-5.20); WHITE BLOOD COUNT 12.4 K/uL (4.1-10.2)
[2018-01-06 17:43] LABS: APPEARANCE CLEAR ((CLEAR)); BILIRUBIN NEGATIVE; BLOOD SMALL; COLOR STRAW ((YELLOW)); GLUCOSE (STRIP) NEGATIVE; KETONES 5; LEUKOCYTES NEGATIVE; NITRITE NEGATIVE; PROTEIN (STRIP) NEGATIVE; SPECIFIC GRAVITY 1.005 (1.000-1.030); UROBILINOGEN 0.2 MG/DL (0.2-1.0)
[2018-01-06 17:43] LABS: CHLORIDE 92 mEq/L (99-109); POTASSIUM 3.8 mEq/L (3.7-5.4); SODIUM 129 mEq/L (136-147)
[2018-01-06 17:46] LABS: GLUCOSE 134 mg/dL (70-99)
[2018-01-06 17:48] LABS: TOTAL BILIRUBIN 0.3 mg/dL (0.0-1.0)
[2018-01-06 17:49] LABS: BACTERIA RARE /HPF; EPITHELIAL CELLS NONE SEEN /HPF; MUCUS NONE SEEN /LPF; RED BLOOD CELLS 0-5 /HPF (0-5); UCUL ADDED? NO; WHITE BLOOD CELLS 0-5 /HPF (0-5)
[2018-01-06 17:49] LABS: ALKALINE PHOSPHATASE 133 IU/L (3-129); CREATININE 0.7 mg/dL (0.6-1.3); GFR ESTIMATE (CALCULATED) > 59 mL/min/
[2018-01-06 17:50] LABS: UREA NITROGEN (BUN) 5 mg/dL (9-23)
[2018-01-06 17:51] LABS: AST (GOT) 16 IU/L (2-34)
[2018-01-06 17:52] LABS: ALT (GPT) 11 IU/L (3-49)
[2018-01-06] MEDS ORDERED: KEFLEX500 MG PO (22:11)
[2018-01-06 22:35] VITALS: BP 188/108
== END 2018-01-06 22:37 | disposition home or self-care (01) ==
LOC: EME 16:09
PROVIDERS: Physician Assistant
DX: R33.9 Retention of urine, unspecified (principal); E87.1 Hypo-osmolality and hyponatremia; I10 Essential (primary) hypertension; E11.9 Type 2 diabetes mellitus without complications; J44.9 Chronic obstructive pulmonary disease, unspecified; E78.5 Hyperlipidemia, unspecified; I25.2 Old myocardial infarction; Z87.442 Personal history of urinary calculi; Z85.850 Personal history of malignant neoplasm of thyroid; Z95.0 Presence of cardiac pacemaker; Z87.891 Personal history of nicotine dependence; Z88.8 Allergy status to other drugs, medicaments and biological substances
CPT/HCPCS: 74177; 80053; 81003; 85027; 99281; 99285; J3010; J7030